=== PATIENT | female | born 1990 | race Hispanic/Latino ===

== ENCOUNTER 2017-12-25 08:22 | Inpatient (IN) | payer OTHER, MEDICAID ==
[2017-12-25 09:21] LABS: APPEARANCE,URINE CLEAR (CLEAR); BILIRUBIN,URINE NEGATIVE (NEGATIVE); COLOR,URINE YELLOW (YELLOW); GLUCOSE, URINE (UA) NEGATIVE (NEGATIVE); KETONES,URINE NEGATIVE (NEGATIVE); LEUKOCYTE ESTERASE ,URINE TRACE (NEGATIVE); NITRATE,URINE NEGATIVE (NEGATIVE); OCCULT BLOOD,URINE TRACE-INTACT (NEGATIVE); PH,URINE 6.5 (5.0-8.0); PROTEIN,URINE NEGATIVE (NEGATIVE)
[2017-12-25 09:48] LABS: BACTERIA,URINE Few /HPF (None Seen); RBC,URINE 0-1 /HPF (0-1)
[2017-12-25 09:49] LABS: WBC,URINE 0-1 /HPF (0-1)
[2017-12-25] MEDS ORDERED: LACTATED RINGERS 1000ML 1,000 ML IV PRN (10:49)
[2017-12-25] MEDS ORDERED: OXYTOCIN-LR 20 UNITS/1000 ML 1,000 ML IV SCH (11:00)
[2017-12-25] MEDS ORDERED: EPHEDRINE SULFATE 50 MG/ML AMPULE IVP PRN (11:30)
[2017-12-25] MEDS ORDERED: MEPERIDINE-PF 50 MG/ML SYG SQ PRN (11:30)
[2017-12-25] MEDS ORDERED: NALOXONE HCL 0.4 MG/1 ML ML IV PRN (11:30)
[2017-12-25] MEDS ORDERED: OXYTOCIN 10 USP UNITS/ML 20 UNIT in LACTATED RINGERS 1000ML 1,000 ML IV SCH (11:30)
[2017-12-25] MEDS ORDERED: LACTATED RINGERS 500 ML 500 ML IV PRN (11:30)
[2017-12-25] MEDS ORDERED: PROMETHAZINE HCL 25 MG/ML 1ML AMPULE IM PRN (11:30)
[2017-12-25 11:37] LABS: MEAN CORPUSCULAR HEMOGLOBIN 27.7 pg (27.0-33.0); MEAN CORPUSCULAR HGB CONC 34.3 g/dL (32.0-36.0); MEAN CORPUSCULAR VOLUME 80.7 fL (79-99); PLATELET COUNT (AUTO) 169 K/uL (130-400); RED BLOOD CELL COUNT(AUTO) 4.34 MIL/uL (4.00-5.50); RED CELL DISTRIBUTION WIDTH 13.9 % (11.0-15.5); WHITE BLOOD COUNT (AUTO) 6.8 K/uL (4.8-10.8)
[2017-12-25] MEDS ORDERED: LIDOCAINE HCL MPF 1% 5ML VIAL ONE (15:56)
[2017-12-25] MEDS ORDERED: MISOPROSTOL 200 MCG TABLET ONE (16:15)
[2017-12-25] MEDS ORDERED: OXYTOCIN 10 USP UNITS/ML ONE ×2 (16:18→16:51)
[2017-12-25] MEDS ORDERED: IBUPROFEN 800 MG TAB ONE (16:45)
[2017-12-25] MEDS ORDERED: WITCH HAZEL 1 PAD TP PRN (17:30)
[2017-12-25] MEDS ORDERED: IBUPROFEN 800 MG TAB PO PRN (17:30)
[2017-12-25] MEDS ORDERED: LANOLIN 30GM OINTMENT TP PRN (17:30)
[2017-12-25] MEDS ORDERED: ACETAMINOPHEN 325 MG TAB PO PRN (17:30)
[2017-12-25] MEDS ORDERED: MEASLES/MUMPS/RUBELLA VACCINE, LIVE 0.5 ML/VIAL SQ PRN (17:30)
[2017-12-25] MEDS ORDERED: DIPH,PERTUSS(ACELL),TET VAC/PF 0.5 ML VIAL IM PRN (17:30)
[2017-12-25] MEDS ORDERED: BENZOCAINE/LANOLIN/ALOE VERA 60 ML AEROSOL TP PRN (17:30)
[2017-12-25 17:45] VITALS: BP 127/77
[2017-12-25 19:49] VITALS: BP 115/78
[2017-12-25] MEDS: DOCUSATE SODIUM 100 MG CAP PO SCH (21:12)
[2017-12-25 22:54] VITALS: BP 116/70
[2017-12-26 04:27] VITALS: BP 97/63
[2017-12-26 06:49] LABS: HEMATOCRIT 28.9 % (36-48); MEAN CORPUSCULAR HEMOGLOBIN 27.2 pg (27.0-33.0); MEAN CORPUSCULAR HGB CONC 33.8 g/dL (32.0-36.0); MEAN CORPUSCULAR VOLUME 80.6 fL (79-99); PLATELET COUNT (AUTO) 139 K/uL (130-400); RED BLOOD CELL COUNT(AUTO) 3.58 MIL/uL (4.00-5.50); RED CELL DISTRIBUTION WIDTH 13.6 % (11.0-15.5); WHITE BLOOD COUNT (AUTO) 7.3 K/uL (4.8-10.8)
[2017-12-26 07:14] LABS: HEPATITIS Bs ANTIGEN SCREEN P Negative (Negative)
[2017-12-26 07:27] VITALS: BP 115/71
[2017-12-26] MEDS: DOCUSATE SODIUM 100 MG CAP PO SCH (08:33)
[2017-12-26 11:22] VITALS: BP 111/75
[2017-12-26 15:39] VITALS: BP 104/71
== END 2017-12-26 16:35 | disposition home or self-care (01) | DRG 775 ==
LOC: EDH 08:22 → LDH 08:23 → INTOOBSV 08:23 → OBSVTOIN 08:23 → WSH 17:45
PROC: 10E0XZZ Delivery of Products of Conception, External Approach (ICD-10-PCS; principal; 2017-12-25)
PROC: 10907ZC Drainage of Amniotic Fluid, Therapeutic from Products of Conception, Via Natural or Artificial Opening (ICD-10-PCS; 2017-12-25)
PROC: 0UQGXZZ Repair Vagina, External Approach (ICD-10-PCS; 2017-12-25)
PROC: 3E0234Z Introduction of Serum, Toxoid and Vaccine into Muscle, Percutaneous Approach (ICD-10-PCS; 2017-12-25)
PROC: 3E0134Z Introduction of Serum, Toxoid and Vaccine into Subcutaneous Tissue, Percutaneous Approach (ICD-10-PCS; 2017-12-25)
DX: O71.4 Obstetric high vaginal laceration alone (principal); Z3A.38 38 weeks gestation of pregnancy; Z37.0 Single live birth; Z23 Encounter for immunization
CPT/HCPCS: 36415; 81001; 85027; 86592; 86850; 86900; 86901; 87340; 90715; A4351; J2175; J2550; J2590; J3490; J7120; Q2038